=== PATIENT | male | born 1965 | race Two or more races ===

== ENCOUNTER 2024-01-01 16:41 | Emergency (ER) | payer BC | END 2024-01-01 19:22 | disposition left against medical advice (07) | LOC: MW.ED 16:41 | DX: Z53.21 Procedure and treatment not carried out due to patient leaving prior to being seen by health care provider (principal) | CPT/HCPCS: 73130-26-RT; 73130-RT ==

== ENCOUNTER 2024-10-04 17:54 | Emergency (ER) | payer BC ==
[2024-10-04] MEDS: Ibuprofen 600 MG Tab PO ONE (20:41)
[2024-10-04] MEDS: Acetaminophen 500 MG Tab PO ONE (20:41)
[2024-10-04] MEDS: guaiFENesin 600 MG Tab.ER PO ONE (20:42)
[2024-10-04] MEDS: Dexamethasone 4 MG/ML SDV IVPUSH ONE (20:42)
== END 2024-10-04 22:32 | disposition home or self-care (01) ==
LOC: MW.ED 17:54
DX: J10.1 Influenza due to other identified influenza virus with other respiratory manifestations (principal); R05.2 Subacute cough; R53.1 Weakness; Z79.899 Other long term (current) drug therapy
CPT/HCPCS: 71045; 71045-26; 87428-QW; 96374; 99283; 99285-25; A9270-GY; J1100

== ENCOUNTER 2025-03-10 14:02 | Emergency (ER) | payer BC ==
[2025-03-10 14:33] LABS: BASOPHILS ABSOLUTE AUTO 0.04 K/uL (0.00-0.20); BASOPHILS PERCENT AUTO 0.5 % (0.0-1.0); EOSINOPHILS ABSOLUTE AUTO 0.33 K/uL (0.00-0.45); EOSINOPHILS PERCENT AUTO 4.1 % (0.0-6.0); HEMOGLOBIN 13.9 g/dL (14.0-18.0); IMMATURE GRAN ABSOLUTE AUTO 0.02 K/uL (0.00-0.05); IMMATURE GRAN PERCENT AUTO 0.3 % (0.0-0.4); LYMPHOCYTES ABSOLUTE AUTO 1.97 K/uL (1.00-4.80); LYMPHOCYTES PERCENT AUTO 24.7 % (24.0-44.0); MEAN CORPUSCULAR HGB CONC 33.9 g/dL (32.0-36.0); MEAN CORPUSCULAR VOLUME 91.3 fL (83.0-99.0); MEAN PLATELET VOLUME 10.9 fL (9.4-12.4); MONOCYTES ABSOLUTE AUTO 0.46 K/uL (0.00-0.80); MONOCYTES PERCENT AUTO 5.8 % (0.0-8.0); NEUTROPHILS ABSOLUTE AUTO 5.14 K/uL (1.80-7.70); NEUTROPHILS PERCENT AUTO 64.6 % (41.0-71.0); PLATELET COUNT,PLT 221 K/uL (150-400); RED BLOOD CELL COUNT 4.49 M/uL (4.52-5.90); WHITE BLOOD CELL COUNT,WBC 7.96 K/uL (3.9-11.3)
[2025-03-10 14:57] LABS: ALANINE AMINOTRANSFERASE,ALT 20 IU/L (14-63); ALBUMIN 3.5 g/dL (3.4-5.0); ALKALINE PHOSPHATASE 89 U/L (46-116); ASPARTATE AMNIOTRANSFERASE,AST 11 IU/L (15-37); BILIRUBIN TOTAL 0.5 mg/dL (0.2-1.0); BLOOD UREA NITROGEN,BUN 12 mg/dL (7.0-18.0); CALCIUM 8.8 mg/dL (8.5-10.1); CARBON DIOXIDE,CO2 27.3 mmol/L (21.0-32.0); CHLORIDE,CL 103 mmol/L (98-107); CREATININE 0.9 mg/dL (0.8-1.3); GLUCOSE RANDOM 164 mg/dL (74-106); POTASSIUM,K 3.8 mmol/L (3.5-5.1); PROTEIN TOTAL,TP 6.9 g/dL (6.4-8.2); SODIUM,NA 139 mmol/L (136-148)
[2025-03-10 15:01] LABS: ESTIMATED GFR 99 mL/min (>60)
== END 2025-03-10 16:38 | disposition home or self-care (01) ==
LOC: MW.ED 14:02
DX: R42 Dizziness and giddiness (principal); R00.1 Bradycardia, unspecified
CPT/HCPCS: 36415; 71045; 71045-26; 80053; 82947; 84484; 85025; 93005; 93010; 99284; 99285